=== PATIENT | female | born 1975 | race Caucasian/White ===

== ENCOUNTER 2021-12-14 14:35 | Emergency (ER) | payer BC ==
[~2021-12-14] VITALS: Ht 162.6 cm; Wt 73.0 kg
[2021-12-14] MEDS ORDERED: MORPHINE SULFATE 4 MG/ML CPJ (NOT FOR IM USE) IV STA (14:40)
[2021-12-14] MEDS ORDERED: ONDANSETRON HCL 4MG/2ML INJ IV STA (14:40)
[2021-12-14] MEDS ORDERED: SODIUM CHLORIDE 0.9% 1,000 ML IV ONE (14:45)
[2021-12-14 15:16] VITALS: BP 129/96
[2021-12-14 15:37] LABS: BASOPHILS % 0.6 % (0.0-2.0); EOSINOPHILS % 0.8 % (0.0-5.0); HEMATOCRIT. 40.7 % (36.0-48.0); HEMOGLOBIN. 13.6 g/dL (12.0-16.0); LYMPHOCYTES % 25.6 % (20.0-50.0); MEAN CORPUSCULAR HEMOGLOBIN 28.1 pg (28.0-32.0); MEAN CORPUSCULAR VOLUME 84.4 fL (81.0-99.0); MEAN PLATELET VOLUME 7.8 fl (7.4-10.4); MONOCYTES % 7.7 % (2.0-8.0); NEUTROPHILS % 65.3 % (40.0-76.0); PLATELET 325 x1000/uL (130-400); RED BLOOD CELL COUNT 4.82 mill/uL (4.2-5.4)
[2021-12-14 15:42] LABS: CHLORIDE 103 mEq/L (98-107)
[2021-12-14 15:44] LABS: PROTHROMBIN TIME 10.3 sec (9.6-11.0)
[2021-12-14 15:50] LABS: HCG SCREEN NEGATIVE
[2021-12-14] MEDS ORDERED: BACITRACIN ZINC OINT UDPKT TOP ONE (16:30)
[2021-12-14] MEDS ORDERED: IOHEXOL-300 100 ML BOTTLE ONE (16:49)
[2021-12-14] MEDS ORDERED: HYDR-4001 MT (16:54)
[2021-12-14] MEDS ORDERED: IBUP-2029 MT (16:54)
[2021-12-14] MEDS ORDERED: BO1 TP (16:54)
== END 2021-12-14 18:55 | disposition home or self-care (01) ==
LOC: ER 14:44
DX: S06.9X1A Unspecified intracranial injury with loss of consciousness of 30 minutes or less, initial encounter (principal); S00.81XA Abrasion of other part of head, initial encounter; S13.8XXA Sprain of joints and ligaments of other parts of neck, initial encounter; E87.6 Hypokalemia; S60.512A Abrasion of left hand, initial encounter; S40.212A Abrasion of left shoulder, initial encounter; S89.82XA Other specified injuries of left lower leg, initial encounter; V18.0XXA Pedal cycle driver injured in noncollision transport accident in nontraffic accident, initial encounter; Y93.55 Activity, bike riding; Y92.832 Beach as the place of occurrence of the external cause
CPT/HCPCS: 36415; 70450; 70486; 71045; 71260; 72125; 73030; 73130; 73562; 74177; 80053; 83690; 84703; 85025; 85610; 93005; 96361; 96374; 96375; 99291; J2270; J2405; J7030; Q9967